=== PATIENT | male | born 1965 | race Caucasian/White ===

== ENCOUNTER 2021-03-03 03:43 | Inpatient (IN) | payer BC ==
[~2021-03-03] VITALS: Ht 177.8 cm; Wt 127.1 kg
[2021-03-03 05:36] VITALS: BP 150/99
[2021-03-03] MEDS ORDERED: HYDR-2214 PO (05:36)
[2021-03-03] MEDS ORDERED: ONDANSETRON 2MG/ML, 2ML IVPush PRN ×3 (06:30→18:00)
[2021-03-03] MEDS ORDERED: morphine SULFATE 10 MG/ML, 1ML IVPush PRN ×3 (06:30→16:19)
[2021-03-03] MEDS ORDERED: MELATONIN 5 MG TABLET PO PRN (06:30)
[2021-03-03 07:58] LABS: BASOPHILS % (AUTO) 1 % (0-1); EOSINOPHILS % (AUTO) 1 % (1-7); LYMPHOCYTES % (AUTO) 12 % (22-44); MEAN CORPUSCULAR HGB CONC 33.3 g/dL (33.2-36.2); MEAN PLATELET VOLUME 7.2 fL (7.4-10.4); MONOCYTES % (AUTO) 8 % (2-9); NEUTROPHILS % (AUTO) 78 % (42-75); PLATELET COUNT 298 x10^3/uL (130-400); RED BLOOD COUNT 4.37 x10^6/uL (4.38-5.82); RED CELL DISTRIBUTION WIDTH 13.1 % (9.4-14.8)
[2021-03-03] MEDS ORDERED: ACETAMINOPHEN 325 MG TABLET PO PRN ×2 (08:00→18:00)
[2021-03-03] MEDS ORDERED: VANCOMYCIN PER PHARMACY MC PRN (08:00)
[2021-03-03] MEDS ORDERED: ONDANSETRON ODT 4 MG PO PRN (08:00)
[2021-03-03] MEDS ORDERED: POLYETHYLENE GLYCOL 17 GM PACKET PO PRN (08:00)
[2021-03-03 08:05] VITALS: BP 155/92
[2021-03-03 08:11] LABS: ANION GAP 5 mmol/L (5-15); CALCIUM 9.6 mg/dL (8.5-10.1); CHLORIDE 104 mmol/L (98-107); CREATININE 1.06 mg/dL (0.7-1.3)
[2021-03-03] MEDS: SENNA/DOCUSATE TABLET PO SCH ×2 (09:00→09:12)
[2021-03-03] MEDS: HYDROcodone/APAP 5/325 TABLET PO PRN ×3 (09:13→22:45)
[2021-03-03] MEDS: LACTATED RINGERS 1,000 ML IV SCH ×2 (09:20→22:46)
[2021-03-03] MEDS: PIPERACILLIN/TAZO 3.375 GM in DEXTROSE 5% 50 ML IV SCH ×3 (09:20→21:14)
[2021-03-03] MEDS ORDERED: PHARMACOKINETIC MONITORING MC PRN (10:00)
[2021-03-03] MEDS ORDERED: VANCOMYCIN 2,500 MG in SODIUM CHLORIDE 0.9% 500 ML IV ONE (10:00)
[2021-03-03 12:30] VITALS: BP 127/85
[2021-03-03] MEDS ORDERED: GADOTERATE 10 MMOL/20ML SYR ONE (14:09)
[2021-03-03] MEDS ORDERED: CHLORHEXIDINE 15 ML UDC PO ONE (15:30)
[2021-03-03] MEDS ORDERED: CHLORHEXIDINE 15 ML UDC ONE (15:32)
[2021-03-03] MEDS ORDERED: MIDAZOLAM 1 MG/ML, 2ML ONE (16:44)
[2021-03-03] MEDS ORDERED: FENTANYL PF 250 MCG/5ML ONE (16:44)
[2021-03-03] MEDS ORDERED: GENTAMICIN 80 MG/2 ML ONE (17:01)
[2021-03-03] MEDS ORDERED: VANCOMYCIN 1,000 MG ONE (17:01)
[2021-03-03] MEDS ORDERED: KETOROLAC 30 MG/1 ML ONE (17:35)
[2021-03-03] MEDS ORDERED: DEXAMETHASONE 4 MG/ML, 1ML ONE (17:36)
[2021-03-03] MEDS ORDERED: PROPOFOL 10 MG/ML, 20ML ONE (17:36)
[2021-03-03] MEDS ORDERED: ONDANSETRON 2MG/ML, 2ML ONE (17:36)
[2021-03-03] MEDS ORDERED: HYDROmorphone 1 MG/ML, 1ML INJ IVPush PRN (18:00)
[2021-03-03] MEDS ORDERED: LABETALOL 5MG/ML, 20ML IV PRN (18:00)
[2021-03-03] MEDS ORDERED: hydrALAzine 20 MG/ML, 1ML IV PRN (18:00)
[2021-03-03] MEDS ORDERED: PROMETHAZINE 25 MG/ML, 1ML IVPush PRN (18:00)
[2021-03-03] MEDS ORDERED: EPHEDRINE 50 MG/ML, 1ML IVPush PRN (18:00)
[2021-03-03] MEDS ORDERED: OXYcodone 5 MG/5 ML ORAL.SOL UDC PO PRN (18:00)
[2021-03-03] MEDS ORDERED: LIDOCAINE-MPF 2% ,5ML ONE (18:10)
[2021-03-03] MEDS ORDERED: OXYcodone 5 MG/5 ML ORAL.SOL UDC ONE (18:48)
[2021-03-03] MEDS ORDERED: FENTANYL PF 100 MCG/2ML ONE ×3 (18:48→20:26)
[2021-03-03] MEDS ORDERED: HYDROmorphone 2 MG/ML, 1ML ONE (18:48)
[2021-03-03] MEDS: FENTANYL PF 100 MCG/2ML IV PRN ×5 (18:51→20:15)
[2021-03-03] MEDS ORDERED: hydrALAzine 20 MG/ML, 1ML ONE (19:15)
[2021-03-03 21:00] VITALS: BP 157/92
[2021-03-04 00:22] VITALS: BP 114/70
[2021-03-04] MEDS: PIPERACILLIN/TAZO 3.375 GM in DEXTROSE 5% 50 ML IV SCH ×4 (03:02→21:13)
[2021-03-04] MEDS: HYDROcodone/APAP 5/325 TABLET PO PRN ×5 (03:03→20:01)
[2021-03-04 05:37] LABS: BASOPHILS % (AUTO) 1 % (0-1); EOSINOPHILS % (AUTO) 0 % (1-7); LYMPHOCYTES % (AUTO) 7 % (22-44); MEAN CORPUSCULAR HEMOGLOBIN 30.3 pg (27.5-34.5); MEAN CORPUSCULAR HGB CONC 33.7 g/dL (33.2-36.2); MEAN PLATELET VOLUME 7.4 fL (7.4-10.4); MONOCYTES % (AUTO) 6 % (2-9); NEUTROPHILS % (AUTO) 87 % (42-75); PLATELET COUNT 335 x10^3/uL (130-400); RED BLOOD COUNT 4.44 x10^6/uL (4.38-5.82); RED CELL DISTRIBUTION WIDTH 13.2 % (9.4-14.8)
[2021-03-04 05:39] LABS: HCT (SEDRATE) 39.4 % (39.2-51.8)
[2021-03-04 05:53] LABS: CHLORIDE 101 mmol/L (98-107)
[2021-03-04 06:07] LABS: ALANINE AMINOTRANSFERASE 36 U/L (12-78); ALBUMIN 2.8 g/dL (3.4-5.0); ALKALINE PHOSPHATASE 74 U/L (45-117); ANION GAP 7 mmol/L (5-15); BILIRUBIN,TOTAL 0.4 mg/dL (0.2-1.0); CALCIUM 9.7 mg/dL (8.5-10.1); CREATININE 1.15 mg/dL (0.7-1.3)
[2021-03-04 07:22] VITALS: BP 151/95
[2021-03-04] MEDS: SENNA/DOCUSATE TABLET PO SCH (09:20)
[2021-03-04] MEDS: LACTATED RINGERS 1,000 ML IV SCH (09:24)
[2021-03-04] MEDS: ENOXAPARIN 40 MG/0.4 ML SQ SCH (14:46)
[2021-03-04 15:07] VITALS: BP 161/92
[2021-03-04] MEDS: VANCOMYCIN 2,000 MG in SODIUM CHLORIDE 0.9% 500 ML IV SCH (15:22)
[2021-03-04 20:22] VITALS: BP 166/95
[2021-03-05] MEDS: HYDROcodone/APAP 5/325 TABLET PO PRN ×5 (01:00→19:54)
[2021-03-05] MEDS: VANCOMYCIN 2,000 MG in SODIUM CHLORIDE 0.9% 500 ML IV SCH (01:00)
[2021-03-05 01:39] VITALS: BP 161/95
[2021-03-05] MEDS: PIPERACILLIN/TAZO 3.375 GM in DEXTROSE 5% 50 ML IV SCH ×2 (03:25→08:49)
[2021-03-05 05:51] LABS: BASOPHILS % (AUTO) 1 % (0-1); EOSINOPHILS % (AUTO) 2 % (1-7); LYMPHOCYTES % (AUTO) 21 % (22-44); MEAN CORPUSCULAR HEMOGLOBIN 30.3 pg (27.5-34.5); MEAN CORPUSCULAR HGB CONC 33.7 g/dL (33.2-36.2); MEAN PLATELET VOLUME 7.2 fL (7.4-10.4); MONOCYTES % (AUTO) 7 % (2-9); NEUTROPHILS % (AUTO) 69 % (42-75); PLATELET COUNT 317 x10^3/uL (130-400); RED BLOOD COUNT 4.27 x10^6/uL (4.38-5.82); RED CELL DISTRIBUTION WIDTH 13.4 % (9.4-14.8)
[2021-03-05 07:09] VITALS: BP 132/94
[2021-03-05] MEDS: SENNA/DOCUSATE TABLET PO SCH (08:50)
[2021-03-05] MEDS ORDERED: HYDROmorphone 2 MG/ML, 1ML ONE (09:21)
[2021-03-05] MEDS: HYDROmorphone 1 MG/ML, 1ML INJ IV PRN (09:23)
[2021-03-05] MEDS: AMLODIPINE 5 MG TABLET PO SCH (11:31)
[2021-03-05] MEDS: CEFAZOLIN 2,000 MG in SODIUM CHLORIDE 0.9% 50 ML IV SCH ×2 (11:31→19:40)
[2021-03-05 13:20] VITALS: BP 144/79
[2021-03-05] MEDS: ENOXAPARIN 40 MG/0.4 ML SQ SCH (15:03)
[2021-03-05 21:20] VITALS: BP 130/73
[2021-03-06] MEDS: HYDROcodone/APAP 5/325 TABLET PO PRN ×5 (01:10→19:56)
[2021-03-06 02:21] VITALS: BP 110/75
[2021-03-06] MEDS: CEFAZOLIN 2,000 MG in SODIUM CHLORIDE 0.9% 50 ML IV SCH (03:09)
[2021-03-06 05:20] LABS: BASOPHILS % (AUTO) 1 % (0-1); EOSINOPHILS % (AUTO) 4 % (1-7); LYMPHOCYTES % (AUTO) 23 % (22-44); MEAN CORPUSCULAR HEMOGLOBIN 30.1 pg (27.5-34.5); MEAN CORPUSCULAR HGB CONC 33.6 g/dL (33.2-36.2); MEAN PLATELET VOLUME 7.2 fL (7.4-10.4); MONOCYTES % (AUTO) 8 % (2-9); NEUTROPHILS % (AUTO) 64 % (42-75); PLATELET COUNT 357 x10^3/uL (130-400); RED BLOOD COUNT 4.42 x10^6/uL (4.38-5.82); RED CELL DISTRIBUTION WIDTH 13.4 % (9.4-14.8)
[2021-03-06 05:34] LABS: CHLORIDE 104 mmol/L (98-107)
[2021-03-06 05:41] LABS: ANION GAP 7 mmol/L (5-15); CREATININE 1.18 mg/dL (0.7-1.3)
[2021-03-06 06:55] VITALS: BP 150/82
[2021-03-06] MEDS: AMLODIPINE 5 MG TABLET PO SCH (08:48)
[2021-03-06] MEDS: SENNA/DOCUSATE TABLET PO SCH (08:48)
[2021-03-06] MEDS: CEFAZOLIN 2,000 MG in DEXTROSE 5% 50 ML IV SCH ×2 (12:25→19:55)
[2021-03-06 13:30] VITALS: BP 163/101
[2021-03-06] MEDS: ENOXAPARIN 40 MG/0.4 ML SQ SCH (13:32)
[2021-03-06 13:35] VITALS: BP 154/94
[2021-03-06] MEDS ORDERED: HYDROmorphone 2 MG/ML, 1ML ONE (15:19)
[2021-03-06] MEDS: HYDROmorphone 1 MG/ML, 1ML INJ IV PRN (15:22)
[2021-03-06 19:35] VITALS: BP 152/94
[2021-03-07] MEDS: HYDROcodone/APAP 5/325 TABLET PO PRN ×6 (00:40→23:31)
[2021-03-07 03:35] VITALS: BP 160/80
[2021-03-07] MEDS: CEFAZOLIN 2,000 MG in DEXTROSE 5% 50 ML IV SCH ×3 (03:57→20:04)
[2021-03-07 07:27] VITALS: BP 147/92
[2021-03-07] MEDS: SENNA/DOCUSATE TABLET PO SCH (09:31)
[2021-03-07] MEDS: AMLODIPINE 5 MG TABLET PO SCH (09:31)
[2021-03-07] MEDS ORDERED: HYDROmorphone 2 MG/ML, 1ML ONE (11:25)
[2021-03-07] MEDS: HYDROmorphone 1 MG/ML, 1ML INJ IV PRN (11:33)
[2021-03-07] MEDS: ENOXAPARIN 40 MG/0.4 ML SQ SCH (14:36)
[2021-03-07 14:43] VITALS: BP 134/85
[2021-03-07 18:27] VITALS: BP 138/89
[2021-03-08] MEDS: HYDROcodone/APAP 5/325 TABLET PO PRN ×5 (03:34→22:04)
[2021-03-08] MEDS: CEFAZOLIN 2,000 MG in DEXTROSE 5% 50 ML IV SCH ×3 (03:52→20:29)
[2021-03-08 03:55] VITALS: BP 133/78
[2021-03-08 04:02] LABS: MEAN CORPUSCULAR HEMOGLOBIN 29.7 pg (27.5-34.5); MEAN CORPUSCULAR HGB CONC 33.1 g/dL (33.2-36.2); MEAN PLATELET VOLUME 6.9 fL (7.4-10.4); PLATELET COUNT 342 x10^3/uL (130-400); RED BLOOD COUNT 4.47 x10^6/uL (4.38-5.82); RED CELL DISTRIBUTION WIDTH 13.5 % (9.4-14.8)
[2021-03-08 04:12] LABS: ANION GAP 4 mmol/L (5-15); CALCIUM 8.8 mg/dL (8.5-10.1); CHLORIDE 107 mmol/L (98-107); CREATININE 1.11 mg/dL (0.7-1.3)
[2021-03-08 04:30] LABS: <PLATELET ESTIMATE> ADEQUATE; <PLT MORPHOLOGY> NORMAL PLT MORPH; <RBC MORPHOLOGY> NORMAL; BAND#(MANUAL) 0.54 x10^3/uL; BANDS%(MANUAL) 4 % (0-7); BASOS#(MANUAL) 0.13 x10^3/uL (0-0.1); BASOS% (MANUAL) 1 % (0-1); EOS#(MANUAL) 0.54 x10^3/uL (0.0-0.4); EOS% (MANUAL) 4 % (1-7); LYMPH#(MANUAL) 2.55 x10^3/uL (1-3.4); LYMPHS% (MANUAL) 19 % (22-44); METAMYELOCYTES# (MANUAL) 0.27 x10^3/uL (0-0); METAMYELOCYTES% (MANUAL) 2 % (0-1); MONOS% (MANUAL) 6 % (2-9); SEG#(MANUAL) 8.58 x10^3/uL (1.8-6.8); SEGS% (MANUAL) 64 % (42-75)
[2021-03-08 07:35] VITALS: BP 133/94
[2021-03-08] MEDS: SENNA/DOCUSATE TABLET PO SCH (08:16)
[2021-03-08] MEDS: AMLODIPINE 10 MG TAB PO SCH (08:16)
[2021-03-08 13:45] VITALS: BP 131/89
[2021-03-08] MEDS: ENOXAPARIN 40 MG/0.4 ML SQ SCH ×2 (14:25→22:04)
[2021-03-08 18:51] VITALS: BP 113/67
[2021-03-09 01:35] VITALS: BP 130/75
[2021-03-09] MEDS: HYDROcodone/APAP 5/325 TABLET PO PRN ×5 (02:10→20:15)
[2021-03-09] MEDS: CEFAZOLIN 2,000 MG in DEXTROSE 5% 50 ML IV SCH ×3 (04:27→20:15)
[2021-03-09 07:46] VITALS: BP 144/99
[2021-03-09] MEDS: ENOXAPARIN 40 MG/0.4 ML SQ SCH ×2 (08:17→21:50)
[2021-03-09] MEDS: SENNA/DOCUSATE TABLET PO SCH (08:17)
[2021-03-09] MEDS: AMLODIPINE 10 MG TAB PO SCH (08:17)
[2021-03-09 14:00] VITALS: BP 152/88
[2021-03-09 20:48] VITALS: BP 147/85
[2021-03-10] MEDS: HYDROcodone/APAP 5/325 TABLET PO PRN ×5 (00:28→20:32)
[2021-03-10 01:46] VITALS: BP 128/78
[2021-03-10] MEDS: CEFAZOLIN 2,000 MG in DEXTROSE 5% 50 ML IV SCH ×3 (04:35→20:31)
[2021-03-10] MEDS: AMLODIPINE 10 MG TAB PO SCH (08:21)
[2021-03-10] MEDS: SENNA/DOCUSATE TABLET PO SCH (08:21)
[2021-03-10] MEDS: ENOXAPARIN 40 MG/0.4 ML SQ SCH ×2 (08:21→20:32)
[2021-03-10 09:00] VITALS: BP 135/83
[2021-03-10 15:48] VITALS: BP 134/89
[2021-03-10 20:28] VITALS: BP 151/82
[2021-03-11] MEDS: HYDROcodone/APAP 5/325 TABLET PO PRN ×5 (01:34→20:11)
[2021-03-11 01:36] VITALS: BP 114/77
[2021-03-11] MEDS: CEFAZOLIN 2,000 MG in DEXTROSE 5% 50 ML IV SCH ×3 (04:09→20:11)
[2021-03-11 07:38] VITALS: BP 129/84
[2021-03-11] MEDS: SENNA/DOCUSATE TABLET PO SCH (08:35)
[2021-03-11] MEDS: AMLODIPINE 10 MG TAB PO SCH (08:35)
[2021-03-11] MEDS: ENOXAPARIN 40 MG/0.4 ML SQ SCH ×2 (08:36→20:11)
[2021-03-11 13:17] VITALS: BP 122/82
[2021-03-11 19:57] VITALS: BP 99/66
[2021-03-11 23:13] VITALS: BP 129/75
[2021-03-12 00:46] VITALS: BP 114/67
[2021-03-12] MEDS: CEFAZOLIN 2,000 MG in DEXTROSE 5% 50 ML IV SCH ×3 (03:36→20:01)
[2021-03-12] MEDS: HYDROcodone/APAP 5/325 TABLET PO PRN ×5 (03:39→22:58)
[2021-03-12 07:30] VITALS: BP 117/76
[2021-03-12] MEDS: AMLODIPINE 10 MG TAB PO SCH (07:58)
[2021-03-12] MEDS: SENNA/DOCUSATE TABLET PO SCH (07:58)
[2021-03-12] MEDS: ENOXAPARIN 40 MG/0.4 ML SQ SCH ×2 (08:03→20:01)
[2021-03-12 13:58] VITALS: BP 130/83
[2021-03-12 18:45] VITALS: BP 115/81
[2021-03-13 01:45] VITALS: BP 111/72
[2021-03-13] MEDS: HYDROcodone/APAP 5/325 TABLET PO PRN ×5 (04:12→22:49)
[2021-03-13] MEDS: CEFAZOLIN 2,000 MG in DEXTROSE 5% 50 ML IV SCH ×3 (04:13→19:31)
[2021-03-13 05:41] LABS: CHLORIDE 104 mmol/L (98-107)
[2021-03-13 05:44] LABS: BASOPHILS % (AUTO) 1 % (0-1); EOSINOPHILS % (AUTO) 2 % (1-7); LYMPHOCYTES % (AUTO) 26 % (22-44); MEAN CORPUSCULAR HEMOGLOBIN 29.5 pg (27.5-34.5); MEAN CORPUSCULAR HGB CONC 32.8 g/dL (33.2-36.2); MONOCYTES % (AUTO) 7 % (2-9); NEUTROPHILS % (AUTO) 64 % (42-75); PLATELET COUNT 287 x10^3/uL (130-400); RED BLOOD COUNT 4.56 x10^6/uL (4.38-5.82); RED CELL DISTRIBUTION WIDTH 13.5 % (9.4-14.8)
[2021-03-13 05:47] LABS: ALANINE AMINOTRANSFERASE 26 U/L (12-78); ALBUMIN 3.1 g/dL (3.4-5.0); ALKALINE PHOSPHATASE 59 U/L (45-117); ANION GAP 3 mmol/L (5-15); BILIRUBIN,TOTAL 0.3 mg/dL (0.2-1.0); C-REACTIVE PROTEIN, QUANT 0.37 mg/dL (0.02-0.49); CALCIUM 9.1 mg/dL (8.5-10.1); CREATININE 1.05 mg/dL (0.7-1.3); TOTAL PROTEIN 7.5 g/dL (6.4-8.2)
[2021-03-13 06:19] LABS: HCT (SEDRATE) 40.9 % (39.2-51.8)
[2021-03-13 07:10] VITALS: BP 119/71
[2021-03-13] MEDS: SENNA/DOCUSATE TABLET PO SCH (08:18)
[2021-03-13] MEDS: AMLODIPINE 10 MG TAB PO SCH (08:18)
[2021-03-13] MEDS: ENOXAPARIN 40 MG/0.4 ML SQ SCH ×2 (08:18→19:28)
[2021-03-13 13:00] VITALS: BP 132/83
[2021-03-13 19:33] VITALS: BP 143/81
[2021-03-14 02:13] VITALS: BP 106/71
[2021-03-14] MEDS: CEFAZOLIN 2,000 MG in DEXTROSE 5% 50 ML IV SCH (04:14)
[2021-03-14] MEDS: HYDROcodone/APAP 5/325 TABLET PO PRN ×4 (05:46→23:17)
[2021-03-14] MEDS ORDERED: AMLO-211 PO (07:39)
[2021-03-14] MEDS ORDERED: ERTA1VIA IV (07:39)
[2021-03-14 08:10] VITALS: BP 153/96
[2021-03-14] MEDS: SENNA/DOCUSATE TABLET PO SCH (08:27)
[2021-03-14] MEDS: AMLODIPINE 10 MG TAB PO SCH (08:27)
[2021-03-14] MEDS: ENOXAPARIN 40 MG/0.4 ML SQ SCH ×2 (08:29→19:17)
[2021-03-14] MEDS: ERTAPENEM 1 GM in SODIUM CHLORIDE 0.9% 50 ML IV SCH (11:28)
[2021-03-14 13:25] VITALS: BP 129/79
[2021-03-14 19:09] VITALS: BP 143/81
[2021-03-15 00:58] VITALS: BP 142/84
[2021-03-15] MEDS: HYDROcodone/APAP 5/325 TABLET PO PRN ×3 (04:32→13:18)
[2021-03-15 07:11] VITALS: BP 123/75
[2021-03-15] MEDS: AMLODIPINE 10 MG TAB PO SCH (08:31)
[2021-03-15] MEDS: SENNA/DOCUSATE TABLET PO SCH (08:31)
[2021-03-15] MEDS: ENOXAPARIN 40 MG/0.4 ML SQ SCH (08:31)
[2021-03-15] MEDS: ERTAPENEM 1 GM in SODIUM CHLORIDE 0.9% 50 ML IV SCH (12:30)
[2021-03-15] MEDS ORDERED: HYDR-2214 PO (13:55)
[2021-03-15 14:03] VITALS: BP 136/93
== END 2021-03-15 14:55 | disposition home or self-care (01) | DRG 580 ==
LOC: 4NE 05:15
PROVIDERS: ADMIT Internal Medicine; ATTEND Family Medicine
PROC: 0J9K0ZZ Drainage of Left Hand Subcutaneous Tissue and Fascia, Open Approach (ICD-10-PCS; principal; 2021-03-06)
PROC: 02HV33Z Insertion of Infusion Device into Superior Vena Cava, Percutaneous Approach (ICD-10-PCS; 2021-03-07)
PROC: B5181ZA Fluoroscopy of Superior Vena Cava using Low Osmolar Contrast, Guidance (ICD-10-PCS; 2021-03-07)
PROC: B548ZZA Ultrasonography of Superior Vena Cava, Guidance (ICD-10-PCS; 2021-03-07)
DX: L03.114 Cellulitis of left upper limb (principal); L02.512 Cutaneous abscess of left hand; E44.0 Moderate protein-calorie malnutrition; E87.1 Hypo-osmolality and hyponatremia; Z68.41 Body mass index [BMI] 40.0-44.9, adult; M65.142 Other infective (teno)synovitis, left hand; G47.33 Obstructive sleep apnea (adult) (pediatric); B95.61 Methicillin susceptible Staphylococcus aureus infection as the cause of diseases classified elsewhere; M60.9 Myositis, unspecified; F12.90 Cannabis use, unspecified, uncomplicated; E66.9 Obesity, unspecified; D63.8 Anemia in other chronic diseases classified elsewhere; D72.825 Bandemia; I10 Essential (primary) hypertension; M65.9 Synovitis and tenosynovitis, unspecified; Z68.37 Body mass index [BMI] 37.0-37.9, adult; Z59.7 Insufficient social insurance and welfare support; Z88.5 Allergy status to narcotic agent
CPT/HCPCS: 36415; J3490; 36573; 80048; 80053; 80202; 83036; 83735; 85025; 85651; 86140; 87015; 87070; 87075; 87077; 87081; 87102; 87116; 87186; 87205; 87206; 87635; G0378; J0690; J1100; J1170; J1335; J1650; J1885; J2250; J2405; J2543; J2704; J3010; J3370; A9575; C1751; J0360; J1580; J2270; J7040; J7120